=== PATIENT | female | born 1960 | race Caucasian/White ===

== ENCOUNTER 2018-05-05 11:08 | Emergency (ER) | payer OTHER ==
[~2018-05-05] VITALS: Ht 154.9 cm; Wt 63.6 kg
[~2018-05-05 11:08] MED LIST: ASPIRIN325 MG PO; AUGMENTIN875 MG PO; DILAUDID4 MG PO; EFFEXOR XR150 MG PO; EXCEDRIN MIGRA1 EACH; Ecotrin PO; FERROUS SULFAT325 MG PO; Glucophage PO; HYDROCHLOROTH12.5 M3 PO; HYDROCHLOROTHIA25 MG PO; HYDROMORPHONE HC4 MG PO; INDERAL20 MG PO; KETOROLAC TROME10 MG PO; KLONOPIN1 MG PO; LIPITOR40 MG PO; METFORMIN HCL500 MG PO; METHADONE10 MG PO; METOPROLOL TART50 MG PO; NOHOMEMEDS; OXYCODONE HCL15 MG PO; OXYCODONE HCL30 MG PO; OXYCODONE30 MG PO; PHENERGAN12.5 M1 PO; PRAVASTATIN SOD40 MG PO; PRAZOSIN HCL1 MG PO; PREDNISONE20 MG PO; SEROQUEL300 MG PO; SOMA350 MG PO; TOPAMAX50 MG PO; TRAMADOL HCL50 MG PO; TRICOR48 MG PO; VALIUM5 MG PO; VENTOLIN HFA18 GM IH; ZESTRIL2.5 MG PO; ZITHROMAX Z-PA250 MG PO; ZOLOFT50 MG PO
[2018-05-05] MEDS ORDERED: KLONOPIN0.5 M1 PO (11:46)
[2018-05-05] MEDS ORDERED: BUSPAR7.5 MG PO (11:46)
[2018-05-05] MEDS ORDERED: COMPAZINE10 MG PO (11:47)
[2018-05-05] MEDS ORDERED: SOMA350 MG PO (11:47)
[2018-05-05] MEDS ORDERED: MS CONTIN,ORAMO15 M1 PO (11:48)
[2018-05-05] MEDS ORDERED: LIPITOR40 MG PO (11:48)
[2018-05-05 12:18] LABS: BASOPHIL (%) 0.6 % (0-1); BASOPHIL COUNT 0.1 K/uL (0-0.1); EOSINOPHIL (%) 0.4 % (0-5); HEMATOCRIT 42.6 % (36.0-46.0); HEMOGLOBIN 14.4 G/DL (11.9-15.5); IMMATURE GRANULOCYTE (%) 0.2 % (0.0-0.7); LYMPHOCYTE (%) 33.2 % (15-42); LYMPHOCYTE COUNT 3.1 K/uL (1.0-2.8); MCH 32.4 PG (29.0-34.0); MCHC 33.8 G/DL (30.0-36.0); MCV 95.7 FL (83-99); MONOCYTE (%) 6.1 % (3-12); MONOCYTE COUNT 0.6 K/uL (0-0.8); NEUTROPHIL (%) 59.5 % (45-76); NEUTROPHIL COUNT 5.6 K/uL (1.8-6.4); PLATELET COUNT 304 K/uL (156-360); RBC DIS.WIDTH-CV 13.9 % (11.8-14.6); RBC DIS.WIDTH-SD 49.2 % (39-53); RED BLOOD COUNT 4.45 M/uL (3.80-5.20); WHITE BLOOD COUNT 9.5 K/uL (4.1-10.2)
[2018-05-05 12:27] LABS: CHLORIDE 103 mEq/L (99-109); POTASSIUM 3.1 mEq/L (3.7-5.4); SODIUM 141 mEq/L (136-147)
[2018-05-05 12:29] LABS: GLUCOSE 123 mg/dL (70-99)
[2018-05-05 12:32] LABS: CREATININE 0.8 mg/dL (0.6-1.3); GFR ESTIMATE (CALCULATED) > 59 mL/min/
[2018-05-05 12:33] LABS: UREA NITROGEN (BUN) 11 mg/dL (9-23)
[2018-05-05] MEDS ORDERED: LISINOPRIL10 MG PO (14:06)
[2018-05-05 14:14] VITALS: BP 162/84
[2018-05-06] MEDS ORDERED: BUSPIRONE HCL7.5 MG PO (21:10)
[2018-05-06] MEDS ORDERED: LISINOPRIL10 MG PO (21:12)
[2018-05-06] MEDS ORDERED: EXCEDRIN MIGRA1 EAC3 PO (21:12)
== END 2018-05-05 14:15 | disposition home or self-care (01) ==
LOC: EME 11:08
PROVIDERS: Emergency Medicine
DX: S09.90XA Unspecified injury of head, initial encounter (principal); I10 Essential (primary) hypertension; W19.XXXA Unspecified fall, initial encounter; E11.9 Type 2 diabetes mellitus without complications; E78.5 Hyperlipidemia, unspecified; F32.9 Major depressive disorder, single episode, unspecified; Z86.73 Personal history of transient ischemic attack (TIA), and cerebral infarction without residual deficits; F43.10 Post-traumatic stress disorder, unspecified; Z79.82 Long term (current) use of aspirin; F17.200 Nicotine dependence, unspecified, uncomplicated
CPT/HCPCS: 70450; 71046; 80048; 85025; 93005; 99281; 99284

== ENCOUNTER 2018-05-06 17:26 | Observation (INO) | payer OTHER ==
[~2018-05-06] VITALS: Ht 154.9 cm; Wt 65.4 kg
[~2018-05-06 17:26] MED LIST changes: +BUSPAR7.5 MG PO; +COMPAZINE10 MG PO; +KLONOPIN0.5 M1 PO; +LISINOPRIL10 MG PO; +MS CONTIN,ORAMO15 M1 PO
[2018-05-06 18:24] LABS: HEMATOCRIT 38.7 % (36.0-46.0); HEMOGLOBIN 13.2 G/DL (11.9-15.5); MCH 32.7 PG (29.0-34.0); MCHC 34.1 G/DL (30.0-36.0); MCV 95.8 FL (83-99); PLATELET COUNT 263 K/uL (156-360); RBC DIS.WIDTH-CV 13.8 % (11.8-14.6); RBC DIS.WIDTH-SD 48.9 % (39-53); RED BLOOD COUNT 4.04 M/uL (3.80-5.20); WHITE BLOOD COUNT 7.6 K/uL (4.1-10.2)
[2018-05-06 18:37] LABS: CHLORIDE 105 mEq/L (99-109); POTASSIUM 3.2 mEq/L (3.7-5.4); SODIUM 139 mEq/L (136-147)
[2018-05-06 18:38] LABS: GLUCOSE 119 mg/dL (70-99)
[2018-05-06 18:42] LABS: CREATININE 0.7 mg/dL (0.6-1.3); GFR ESTIMATE (CALCULATED) > 59 mL/min/
[2018-05-06 18:43] LABS: TROP-I INTERPRETATION NEGATIVE; TROPONIN-I 0.02 ng/mL (0.0-0.30); UREA NITROGEN (BUN) 7 mg/dL (9-23)
[2018-05-06 20:10] LABS: APPEARANCE CLEAR ((CLEAR)); BILIRUBIN NEGATIVE; BLOOD SMALL; COLOR YELLOW ((YELLOW)); GLUCOSE (STRIP) NEGATIVE; KETONES NEGATIVE; LEUKOCYTES NEGATIVE; NITRITE NEGATIVE; PROTEIN (STRIP) 30; SPECIFIC GRAVITY 1.041 (1.000-1.030); UROBILINOGEN 0.2 MG/DL (0.2-1.0)
[2018-05-06 20:12] LABS: BACTERIA NONE SEEN /HPF; EPITHELIAL CELLS NONE SEEN /HPF; MUCUS TRACE /LPF; RED BLOOD CELLS 0-5 /HPF (0-5); UCUL ADDED? NO; WHITE BLOOD CELLS 0-5 /HPF (0-5)
[2018-05-06 20:39] LABS: TROP-I INTERPRETATION NEGATIVE; TROPONIN-I 0.02 ng/mL (0.0-0.30)
[2018-05-06 20:43] LABS: AMPHETAMINE NEGATIVE (500 ng/mL); BARBITURATES NEGATIVE (200 ng/mL); BENZODIAZEPINES NEGATIVE (150 ng/mL); BUPRENORPHINE NEGATIVE (10 ng/mL); COCAINE NEGATIVE (150 ng/mL); METHADONE NEGATIVE (200 ng/mL); METHAMPHETAMINE NEGATIVE (500 ng/mL); OPIATES (MORPHINE) PRESUMPTIVE POSITIVE (100 ng/mL); OXYCODONE NEGATIVE (100 ng/mL); PHENCYCLIDINE NEGATIVE (25 ng/mL); PROPOXYPHENE NEGATIVE (300 ng/mL); THC CANNABINOIDS PRESUMPTIVE POSITIVE (50 ng/mL); TRICYCLIC ANTIDEPRESSANTS NEGATIVE (300 ng/mL)
[2018-05-06] MEDS ORDERED: BUSPIRONE HCL7.5 MG PO (21:10)
[2018-05-06] MEDS ORDERED: EXCEDRIN MIGRA1 EAC3 PO (21:12)
[2018-05-06] MEDS ORDERED: LISINOPRIL10 MG PO (21:12)
[2018-05-07 00:05] LABS: SERUM ETHYL ALCOHOL < 10 mg/dL
[2018-05-07 00:37] LABS: TROP-I INTERPRETATION NEGATIVE; TROPONIN-I 0.02 ng/mL (0.0-0.30)
[2018-05-07 00:41] VITALS: BP 186/83
[2018-05-07 03:53] VITALS: BP 171/77
[2018-05-07 05:24] LABS: TROP-I INTERPRETATION NEGATIVE; TROPONIN-I 0.01 ng/mL (0.0-0.30)
[2018-05-07 05:34] LABS: CHLORIDE 107 MEQ/L (99-109); CREATININE 0.6 MG/DL (0.6-1.3); GFR ESTIMATE (CALCULATED) > 59 mL/min/; GLUCOSE 120 mg/dL (70-99); HDL CHOLESTEROL 42 MG/DL (Desirable>=50); LDL CHOLESTEROL 63 mg/dL (Desirable<100); MAGNESIUM 1.8 mg/dl (1.3-2.7); NON-HDL CHOLESTEROL 77 mg/dL (Desirable<160); POTASSIUM 3.8 MEQ/L (3.7-5.4); SODIUM 140 MEQ/L (136-147); TOTAL CHOLESTEROL 119 mg/dL (Desirable<200); TRIGLYCERIDES 68 MG/DL (Normal: <150); UREA NITROGEN (BUN) 7 mg/dL (9-23)
[2018-05-07 07:46] VITALS: BP 176/79
[2018-05-07 12:13] VITALS: BP 161/78
[2018-05-07 13:44] VITALS: BP 133/76
[2018-05-07] MEDS ORDERED: LOPRESSOR25 MG PO (13:44)
[2018-05-07] MEDS ORDERED: NICOTINE PATCH1 EAC2 TD (13:44)
[2018-05-07] MEDS ORDERED: AMLODIPINE BESYL5 MG PO (13:45)
== END 2018-05-07 16:35 | disposition home or self-care (01) ==
LOC: EME 17:26 → EDOF 23:21 → 4SOUTH 23:21 → EDOF 23:21 → ENRESERV 23:29 → 4SOUTH 05-07 00:32
PROVIDERS: Physician Assistant; Physician Assistant Medical
DX: R07.2 Precordial pain (principal); I10 Essential (primary) hypertension; G89.4 Chronic pain syndrome; G44.309 Post-traumatic headache, unspecified, not intractable; E87.6 Hypokalemia; Z82.49 Family history of ischemic heart disease and other diseases of the circulatory system; I65.22 Occlusion and stenosis of left carotid artery; F11.20 Opioid dependence, uncomplicated; F17.210 Nicotine dependence, cigarettes, uncomplicated; E78.5 Hyperlipidemia, unspecified; E11.51 Type 2 diabetes mellitus with diabetic peripheral angiopathy without gangrene; G43.909 Migraine, unspecified, not intractable, without status migrainosus; F32.9 Major depressive disorder, single episode, unspecified; F43.10 Post-traumatic stress disorder, unspecified; D64.9 Anemia, unspecified; T80.89XA Other complications following infusion, transfusion and therapeutic injection, initial encounter; Z79.82 Long term (current) use of aspirin; Z86.73 Personal history of transient ischemic attack (TIA), and cerebral infarction without residual deficits; R29.6 Repeated falls; F10.11 Alcohol abuse, in remission
CPT/HCPCS: 70496; 70498; 71046; 80048; 80061; 81003; 83735; 84484; 84999; 85027; 93005; 99202; 99281; 99285; G0378; G0480; J1650; J7030